=== PATIENT | female | born 1995 | race Caucasian/White ===

== ENCOUNTER 2017-03-31 17:06 | Emergency (ER) | payer OTHER ==
[~2017-03-31] VITALS: Ht 160 cm; Wt 64.4 kg
[2017-03-31 17:10] VITALS: BP 128/99
== END 2017-03-31 19:14 | disposition home or self-care (01) ==
LOC: ED 17:06
DX: H57.8 Other specified disorders of eye and adnexa (principal); H57.12 Ocular pain, left eye; Z77.098 Contact with and (suspected) exposure to other hazardous, chiefly nonmedicinal, chemicals
CPT/HCPCS: J7030; J7040; V2632

== ENCOUNTER 2017-09-20 22:33 | Emergency (ER) | payer OTHER ==
[~2017-09-20] VITALS: Ht 160 cm; Wt 66.4 kg
[2017-09-20 22:48] VITALS: Ht 160 cm; Wt 66.4 kg
[2017-09-21 00:04] VITALS: BP 114/79
== END 2017-09-21 00:12 | disposition home or self-care (01) ==
LOC: ED 22:33
DX: G44.209 Tension-type headache, unspecified, not intractable (principal); K29.70 Gastritis, unspecified, without bleeding
CPT/HCPCS: 20552; J2001; Q0162

== ENCOUNTER 2018-05-17 01:37 | Emergency (ER) | payer OTHER ==
[~2018-05-17] VITALS: Ht 160 cm; Wt 64.9 kg
[2018-05-17 01:55] VITALS: BP 113/78; Ht 160 cm; Wt 64.9 kg
== END 2018-05-17 03:30 | disposition home or self-care (01) ==
LOC: ED 01:37
DX: R10.13 Epigastric pain (principal); R11.0 Nausea